=== PATIENT | female | born 1950 | race Caucasian/White ===

== ENCOUNTER → 2022-01-23 | Outpatient (CLI) | payer MEDICARE ==
[2022-01-23 11:40] LABS: ABG HCO3 23 mmol/L (22-26); ABG PCO2 36 mmHg (35-45); ABG PH 7.42 (7.35-7.45); ABG PO2 66 mmHg (80-105); ABG TCO2 24
== END ==
LOC: RESP 08:41
PROVIDERS: ATTEND Internal Medicine
DX: J44.9 Chronic obstructive pulmonary disease, unspecified (principal)
CPT/HCPCS: 36415; 36600; 82805

== ENCOUNTER 2022-02-07 13:47 | Inpatient (IN) | payer MEDICARE, OTHER ==
[~2022-02-07] VITALS: Ht 152.4 cm; Wt 48.1 kg
[~2022-02-07 13:47] MED LIST: IBUPROFEN600 MG PO; ULTRACET TABLE1 EACH PO
[2022-02-07] MEDS ORDERED: SODIUM CHLORIDE 0.9% 1000ML 1,000 ML IV STA (13:57)
[2022-02-07] MEDS ORDERED: METHYLPREDNISOLONE SOD SUCC 125 MG/2ML VIAL IV ONE (14:00)
[2022-02-07] MEDS ORDERED: ALBUTEROL/IPRATROPIUM 3 ML NEB NEB ONE (14:00)
[2022-02-07 14:13] LABS: BASOPHILS # (AUTO) 0.1 (0.0-0.1); BASOPHILS % 1.1 % (0.0-1.0); EOSINOPHILS # (AUTO) 0.2 (0.0-0.4); EOSINOPHILS % 4.6 % (0.0-6.0); HEMATOCRIT 40.4 % (34.2-44.1); LYMPHOCYTES # (AUTO) 0.9 (1.0-3.2); LYMPHOCYTES % 16.3 % (18.0-39.1); MEAN CORPUSCULAR HEMOGLOBIN 32.3 pg (28-32); MEAN CORPUSCULAR HGB CONC 32.2 g/dL (31-35); MEAN CORPUSCULAR VOLUME 100.2 fL (81-99); MONOCYTES # (AUTO) 0.5 (0.2-0.8); MONOCYTES % 9.4 % (4.4-11.3); NEUTROPHILS # (AUTO) 3.6 (2.1-6.9); NEUTROPHILS % 68.2 % (38.7-80.0); PLATELET COUNT 207 x10e3/uL (140-360); RED BLOOD COUNT 4.03 x10e6/uL (3.6-5.1); RED CELL DISTRIBUTION WIDTH 12.9 % (11.7-14.4)
[2022-02-07 14:21] LABS: INR 0.87; PARTIAL THROMBOPLASTIN TIME 24.2 seconds (23.8-35.5); PROTHROMBIN TIME 12.6 seconds (11.9-14.5)
[2022-02-07 14:28] LABS: ALANINE AMINOTRANSFERASE 74 IU/L (0-55); ALBUMIN 3.6 g/dL (3.5-5.0); ALBUMIN/GLOBULIN RATIO 0.9 (0.8-2.0); ALKALINE PHOSPHATASE 185 IU/L (40-150); BLOOD UREA NITROGEN 11 mg/dL (7-26); BUN/CREATININE RATIO 17 (6-25); CALCIUM 9.2 mg/dL (8.4-10.2); CARBON DIOXIDE 22 mmol/L (22-29); CHLORIDE 105 mmol/L (98-107); CREATINE KINASE 145 IU/L (29-168); CREATININE, SERUM 0.65 mg/dL (0.57-1.11); EST GLOMERULAR FILTRATION RATE 90 ML/MIN (60-); GLUCOSE 98 mg/dL (74-118); SODIUM 138 mmol/L (136-145)
[2022-02-07 14:38] LABS: ABG HCO3 24 mmol/L (22-26); ABG PCO2 47 mmHg (35-45); ABG PH 7.31 (7.35-7.45); ABG PO2 145 mmHg (80-105); ABG TCO2 25
[2022-02-07] MEDS ORDERED: SODIUM CHLORIDE 0.9% 1000ML 1,000 ML IV SCH (15:00)
[2022-02-07 15:58] LABS: CLARITY,URINE CLEAR (CLEAR); COLOR,URINE YELLOW (YELLOW); KETONES,URINE NEGATIVE (NEGATIVE); LEUKOCYTE ESTERASE ,URINE NEGATIVE (NEGATIVE); NITRITE,URINE NEGATIVE (NEGATIVE); PROTEIN,URINE DIPSTICK NEGATIVE (NEGATIVE); URINE UROBILINOGEN 0.2 mg/dL (0.2 - 1)
[2022-02-07 16:13] LABS: EPITHELIAL CELLS,URINE RARE /LPF
[2022-02-07 17:51] VITALS: BP 143/65
[2022-02-07] MEDS ORDERED: CLONIDINE HCL 0.1 MG TAB PO PRN (18:00)
[2022-02-07] MEDS ORDERED: ACETAMINOPHEN 325 MG TAB PO PRN (18:00)
[2022-02-07] MEDS ORDERED: TRAMADOL HCL 50 MG TAB PO PRN (18:00)
[2022-02-07] MEDS ORDERED: ONDANSETRON HCL INJ 2MG/ML 2ML 2 MG/ML VIAL IV PRN (18:00)
[2022-02-07] MEDS: ENOXAPARIN SOD INJ 40 MG/0.4 ML SYR SC SCH (18:16)
[2022-02-07] MEDS: AZITHROMYCIN 250 MG TAB PO SCH (18:16)
[2022-02-07 18:46] VITALS: BP 143/65
[2022-02-07 18:54] VITALS: BP 143/65
[2022-02-07 20:00] VITALS: BP 152/84
[2022-02-07] MEDS: ALBUTEROL/IPRATROPIUM 3 ML NEB NEB SCH ×2 (20:25→23:50)
[2022-02-08] VITALS (9 sets, daily range): BP systolic 116–157; BP diastolic 57–79
[2022-02-08] MEDS: ALBUTEROL/IPRATROPIUM 3 ML NEB NEB SCH ×6 (03:10→23:05)
[2022-02-08 04:58] LABS: BASOPHILS % 0.7 % (0.0-1.0); HEMATOCRIT 36.3 % (34.2-44.1); HEMOGLOBIN 11.8 g/dL (12.0-16.0); LYMPHOCYTES # (AUTO) 0.5 (1.0-3.2); MEAN CORPUSCULAR HEMOGLOBIN 32.3 pg (28-32); MEAN CORPUSCULAR HGB CONC 32.5 g/dL (31-35); MEAN CORPUSCULAR VOLUME 99.5 fL (81-99); MONOCYTES # (AUTO) 0.3 (0.2-0.8); MONOCYTES % 9.2 % (4.4-11.3); NEUTROPHILS # (AUTO) 2.1 (2.1-6.9); NEUTROPHILS % 71.8 % (38.7-80.0); PLATELET COUNT 183 x10e3/uL (140-360); RED BLOOD COUNT 3.65 x10e6/uL (3.6-5.1); RED CELL DISTRIBUTION WIDTH 12.9 % (11.7-14.4)
[2022-02-08 05:22] LABS: ANION GAP 12.2 mmol/L (8-16); CALCIUM 9.3 mg/dL (8.4-10.2); CREATININE, SERUM 0.57 mg/dL (0.57-1.11); POTASSIUM 4.2 mmol/L (3.5-5.1)
[2022-02-08 05:46] LABS: ALBUMIN 3.1 g/dL (3.5-5.0); BILIRUBIN,DIRECT 0.2 mg/dL (0.0-0.5)
[2022-02-08] MEDS: PREDNISONE 20 MG TAB PO SCH (09:16)
[2022-02-08] MEDS ORDERED: AZITHROMYCIN250 MG PO (09:50)
[2022-02-08] MEDS ORDERED: MEDROL4 MG PO (09:50)
[2022-02-08] MEDS: AZITHROMYCIN 250 MG TAB PO SCH (15:54)
[2022-02-08] MEDS: ENOXAPARIN SOD INJ 40 MG/0.4 ML SYR SC SCH (16:35)
[2022-02-09] VITALS: BP 145/75
[2022-02-09] MEDS: ALBUTEROL/IPRATROPIUM 3 ML NEB NEB SCH ×3 (03:06→11:15)
[2022-02-09 05:00] VITALS: BP 132/86
[2022-02-09 07:31] VITALS: BP 150/81
[2022-02-09] MEDS: PREDNISONE 20 MG TAB PO SCH (08:00)
[2022-02-09 08:05] VITALS: BP 150/81
[2022-02-09 11:14] VITALS: BP 140/93
== END 2022-02-09 12:30 | disposition home or self-care (01) | DRG 189 ==
LOC: ER 13:50 → ERHOLD 14:55 → MED/SURG 17:49 → OBSVTOIN 02-08 14:19
PROVIDERS: ADMIT Internal Medicine; ATTEND Internal Medicine
DX: J96.01 Acute respiratory failure with hypoxia (principal); C34.90 Malignant neoplasm of unspecified part of unspecified bronchus or lung; J44.1 Chronic obstructive pulmonary disease with (acute) exacerbation; B99.9 Unspecified infectious disease; Z20.822 Contact with and (suspected) exposure to COVID-19
CPT/HCPCS: 36415; 36600; 71045; 80048; 80053; 80076; 81001; 82550; 82553; 82805; 83605; 83880; 84484; 85025; 85610; 85730; 87040; 87071; 87086; 87205; 93005; 94640; 94799; 99285; G0378; J0696; J1650; J2930; J7030; J7512; U0002

== ENCOUNTER 2022-05-03 10:56 | Outpatient (RCR) | payer OTHER ==
[~2022-05-03 10:56] MED LIST changes: +AZITHROMYCIN250 MG PO; +MEDROL4 MG PO
== END 2022-05-12 ==
LOC: RESP 10:56
PROVIDERS: ATTEND Internal Medicine
DX: J44.9 Chronic obstructive pulmonary disease, unspecified (principal)
CPT/HCPCS: 94799

== ENCOUNTER 2022-05-16 07:48 | Outpatient (RCR) | payer OTHER | END 2022-06-12 | LOC: RESP 07:48 | PROVIDERS: ATTEND Internal Medicine | DX: J44.9 Chronic obstructive pulmonary disease, unspecified (principal) ==